=== PATIENT | female | born 1950 | race Caucasian/White ===

== ENCOUNTER 2019-07-31 10:20 | Day surgery (SDC) | payer MEDICARE, BC ==
[2019-07-31] MEDS ORDERED: Dexamethasone 4 MG/ML 5 ML MDV IVPUSH ONE (10:21)
[2019-07-31] MEDS ORDERED: Ropivacaine 0.5% 5 MG/ML 20 ML SDV INJECT ONE (10:21)
--- NOTE | 2019-07-31 12:50 | PCM.SN ---
- Free Text/Narrative Note: ANESTHESIA CHRONIC PAIN SERVICE Date: 07/31/2019 Time: 1102 to 1142 Preprocedure Dx: Meralgia Paresthetica Lt Lateral Upper Thigh [G57.12] Postprocedure Rx: Left Lateral Cutaneous Femoral Nerve Block. Procedure: Left Lateral Cutaneous Femoral Nerve [Lcfn] Block with Ultrasound [U/ S] Guidance This patient was referred to anesthesia by Dr. Ney Castillo D.OJose for left Lcfn Block for left lateral hip pain. She is s/p lower lumbar laminectomy with chronic left hip and knee pain. She is Diabetic Type 2 with insulin. Her Accu check today was under 150. Upon asking her her pain today, she rated it a 8-9 / 10. I really tried to localize the pain. It does not radiate down her left upper lateral thigh but hurts around her lateral [place] area. Little or no pain radiating into her lower left buttocks. It was really hard to pin down her site pain. I discussed her pain with her and informed her that Dr. Ney Castillo would like us to try this nerve block. I told her it was not a true "classic" presentation but we would do this but to be aware of no relief. She wishes to proceed and a consent was obtained. I also told her to watch her blood sugars and to contact her PCP if she had problems after 2 days. Monitors: SpO2 with heart rate [please see nursing notes for the vital signs]. Sedation: None. She remained awake throughout this procedure without complaints. She is supine with her H.O.B. elevated 30 degrees. A Preprocedure U/S scan was done locating the Left Femoral Artery and Nerve following laterally locating the Left Sartorious Muscle with continuing laterally locating what appeared to be the Left Lcfn. A wide prep area was done with a Chlora-Prep sponge and allowed to dry. Using aseptic technique, I infiltrated the block needle insertion site with 3 ml's of 1% Lidocaine Plain using a 30 Ga. needle. Under direct U/S visualization, I inserted and advanced a 20Ga. 4 In. Keekuplex Ultra 360 Echogenic Needle to what appeared to be a good spot with mild difficulty [ huge panniculus]. Upon a 1 ml injection, it did not appear to be where I wanted it. I then stopped and rescanned for the Lcfn which was done with moderate difficulty. It was easy to follow the Sartorious until the end of the muscle which finding the Lcfn was problematic. After what appeared to be the left Lcfn, under direct U/S visualization, a total of 8 ml's of .5% Naropin plain and 2 ml's of Dexamethasone was injected slowly with frequent aspirations lifting the space and nerve. She tolerated this procedure quite well with no complaints or complications noted. After about 10 minutes or more, she was discharged home walking with a pain scale of 4 / 10. I discussed with her again if she would like another injection after 1 week we could do it. She appeared very happy and laughing while walking. Documentation: Please see the images taken in Radiology PAC system. Thank you for using our service. FANTASMA Casey CRNA
--- NOTE | 2019-07-31 15:06 | US ---
INDICATION: Left lateral femoral cutaneous nerve block. ULTRASOUND FOR RFA GUIDANCE: Multiple ultrasonic images were obtained for guidance for RFA. A needle was noted at the left lateral cutaneous femoral nerve. MTDD
== END 2019-07-31 12:06 | disposition home or self-care (01) ==
LOC: FB.SDS 10:20 → EDSTATUS 11:00 → FB.SDS 12:06
PROVIDERS: ATTEND Nurse Anesthetist, Certified Registered
DX: G57.12 Meralgia paresthetica, left lower limb (principal); Z79.4 Long term (current) use of insulin; Z79.899 Other long term (current) drug therapy
CPT/HCPCS: 64450; 82962; J1100; J2001; J2795